=== PATIENT | female | born 1945 | race Caucasian/White ===

== ENCOUNTER 2017-05-01 14:45 | Emergency (ER) | payer OTHER ==
[~2017-05-01] VITALS: Ht 149.9 cm; Wt 61.0 kg
[2017-05-01] MEDS ORDERED: ACETAMINOPHEN 325MG TABLET PO ONE (17:15)
[2017-05-01 17:33] LABS: BASOPHILS % 0.7 % (0.0-2.0); EOSINOPHILS % 0.7 % (0.0-5.0); HEMATOCRIT. 40.4 % (36.0-48.0); HEMOGLOBIN. 13.5 g/dL (12.0-16.0); LYMPHOCYTES % 9.7 % (20.0-50.0); MEAN CORPUSCULAR HEMOGLOBIN 29.2 pg (28.0-32.0); MEAN CORPUSCULAR VOLUME 87.1 fL (81.0-99.0); MEAN PLATELET VOLUME 9.1 fl (7.4-10.4); MONOCYTES % 5.5 % (2.0-8.0); NEUTROPHILS % 83.4 % (40.0-76.0); PLATELET 183 x1000/uL (130-400); RED BLOOD CELL COUNT 4.64 mill/uL (4.2-5.4); RED CELL DISTRIBUTION WIDTH 14.2 % (11.6-14.6)
[2017-05-01 17:42] LABS: CHLORIDE 106 mEq/L (98-107)
[2017-05-01 17:47] LABS: CARBON DIOXIDE 24 mEq/L (21-32)
[2017-05-01 18:20] LABS: CLARITY URINE CLEAR (CLEAR); COLOR URINE YELLOW (YELLOW); GLUCOSE URINE NEGATIVE (NEGATIVE); KETONES URINE NEGATIVE (NEGATIVE); LEUKOCYTE ESTERASE URINE NEGATIVE (NEGATIVE); NITRITE URINE NEGATIVE (NEGATIVE); OCCULT BLOOD URINE NEGATIVE (NEGATIVE); PH URINE 7.5 (4.5-8.0); PROTEIN URINE NEGATIVE (NEGATIVE); SPECIFIC GRAVITY URINE 1.014 (1.005-1.030); UROBILINOGEN URINE 0.2 E.U./dL (0.2-1.0)
[2017-05-01 19:35] VITALS: BP 129/65
== END 2017-05-01 20:44 | disposition home or self-care (01) ==
LOC: ER 14:57
DX: B34.9 Viral infection, unspecified (principal); E78.00 Pure hypercholesterolemia, unspecified; I10 Essential (primary) hypertension; R06.02 Shortness of breath; R07.9 Chest pain, unspecified; R00.2 Palpitations; Z88.6 Allergy status to analgesic agent
CPT/HCPCS: 36415; 80048; 81003; 85025; 99284

== ENCOUNTER 2021-03-19 12:33 | Emergency (ER) | payer MEDICARE, MEDICAID ==
[~2021-03-19] VITALS: Ht 152.4 cm; Wt 49.9 kg
[2021-03-19 16:13] VITALS: BP 142/69
== END 2021-03-19 16:15 | disposition home or self-care (01) ==
LOC: ER 12:33
DX: K59.00 Constipation, unspecified (principal); K62.89 Other specified diseases of anus and rectum; E11.9 Type 2 diabetes mellitus without complications; I10 Essential (primary) hypertension; E78.00 Pure hypercholesterolemia, unspecified; Z88.6 Allergy status to analgesic agent
CPT/HCPCS: 99283

== ENCOUNTER 2024-01-17 15:27 | Emergency (ER) | payer BC, MEDICAID, MEDICARE ==
[~2024-01-17] VITALS: Ht 152.4 cm; Wt 69.0 kg
[2024-01-17 15:34] VITALS: TEMP 98.2; O2SAT 98
[2024-01-17] MEDS ORDERED: AMOX1TAB16 MT (15:45)
[2024-01-17 16:17] VITALS: BP 123/66; PULSE 70; RESP 18
== END 2024-01-17 16:20 | disposition home or self-care (01) ==
LOC: ER 15:27
DX: L03.012 Cellulitis of left finger (principal); E11.9 Type 2 diabetes mellitus without complications; E78.00 Pure hypercholesterolemia, unspecified; I10 Essential (primary) hypertension
CPT/HCPCS: 99283